=== PATIENT | male | born 1955 | race Caucasian/White ===

== ENCOUNTER 2020-12-09 08:48 | Outpatient (CLI) | payer BC ==
[2020-12-09] MEDS ORDERED: Magnevist 469MG/ML 20 ML VIAL ONE (09:49)
== END 2020-12-09 08:49 | disposition home or self-care (01) ==
LOC: TBSIIMAG 08:48
PROVIDERS: ATTEND Radiology Radiation Oncology
DX: C61 Malignant neoplasm of prostate (principal); Z98.890 Other specified postprocedural states
CPT/HCPCS: 72197; 82565

== ENCOUNTER 2020-12-24 10:34 | Outpatient (CLI) | payer BC | END 2020-12-24 10:35 | disposition home or self-care (01) | LOC: NM 10:34 | PROVIDERS: ATTEND Radiology Radiation Oncology | DX: C61 Malignant neoplasm of prostate (principal); R97.21 Rising PSA following treatment for malignant neoplasm of prostate; M15.9 Polyosteoarthritis, unspecified | CPT/HCPCS: 78306; 78803; A9503 ==

== ENCOUNTER 2021-10-26 11:43 | Outpatient (CLI) | payer MEDICARE | END 2021-10-26 11:44 | disposition home or self-care (01) | LOC: BICMRI 11:43 | PROVIDERS: ATTEND Surgery | DX: M50.20 Other cervical disc displacement, unspecified cervical region (principal); M48.02 Spinal stenosis, cervical region | CPT/HCPCS: 72125; 72141 ==

== ENCOUNTER 2022-01-14 08:03 | Outpatient (CLI) | payer MEDICARE | END 2022-01-14 08:04 | disposition home or self-care (01) | LOC: LABBT 08:03 | PROVIDERS: ATTEND Surgery | DX: Z01.818 Encounter for other preprocedural examination (principal); Z20.822 Contact with and (suspected) exposure to COVID-19 | CPT/HCPCS: 80048; 85027; 85610; 85730; 86850; 86900; 86901; 87811; 93005; 93010 ==

== ENCOUNTER 2022-03-01 08:39 | Outpatient (CLI) | payer MEDICARE | END 2022-03-01 08:40 | disposition home or self-care (01) | LOC: BICRAD 08:39 | PROVIDERS: ATTEND Surgery | DX: M50.10 Cervical disc disorder with radiculopathy, unspecified cervical region (principal); Z98.1 Arthrodesis status; Z98.890 Other specified postprocedural states | CPT/HCPCS: 72040 ==

== ENCOUNTER 2022-06-11 12:22 | Outpatient (CLI) | payer MEDICARE | END 2022-06-11 12:23 | disposition home or self-care (01) | LOC: TBSIIMAG 12:22 | PROVIDERS: ATTEND Surgery | DX: M25.551 Pain in right hip (principal); M54.50 Low back pain, unspecified; M47.816 Spondylosis without myelopathy or radiculopathy, lumbar region; M47.817 Spondylosis without myelopathy or radiculopathy, lumbosacral region | CPT/HCPCS: 72110; 72148 ==

== ENCOUNTER 2023-07-01 10:46 | Outpatient (CLI) | payer MEDICARE | END 2023-07-01 10:47 | disposition home or self-care (01) | LOC: BICCT 10:46 | PROVIDERS: ATTEND Registered Nurse | DX: R91.8 Other nonspecific abnormal finding of lung field (principal) | CPT/HCPCS: 71271 ==

== ENCOUNTER 2025-01-21 11:56 | Outpatient (CLI) | payer MEDICARE ==
[2025-01-21 13:11] LABS: #Basophils Less than 0.03 10x3/uL (0.0-0.2); #Eosinophils 0.07 10x3/uL (0.0-0.7); #Monocytes 0.59 10x3/uL (0.11-0.59); #Neutrophils 3.42 10x3/uL (1.40-6.50); %Basophils 0.3 % (0.0-1.0); %Eosinophils 1.2 % (0.0-10.0); %Lymphocytes 28.5 % (21.0-51.0); %Monocytes 10.3 % (0.0-10.0); %Neutrophils 59.5 % (42.0-75.0); Hematocrit 44.4 % (42.0-52.0); Hemoglobin 14.2 g/dL (14.0-18.0); Mean Corpuscular Hemoglobin 31.6 pg (27.0-31.0); Mean Corpuscular Volume 98.7 fL (78.0-98.0); Platelet Count 298 10x3/uL (130-400); Red Blood Cell (RBC) Count 4.50 mill/uL (4.70-6.10); White Blood Cell (WBC) Count 5.75 10x3/uL (4.8-10.8)
[2025-01-21 13:30] LABS: Anion Gap 15 mmol/L (10-20); BUN (Urea Nitrogen) 29 mg/dL (8.4-25.7); Calc. Creatinine Clearance 0 mL/min (70-130); Calcium 9.3 mg/dL (7.8-10.44); Carbon Dioxide 25 mmol/L (23-31); Chloride 105 mmol/L (98-107); Glucose 161 mg/dL (80-115); INR-International Normal Ratio 1.0; PTT 30.1 sec (22.9-36.1); Potassium 4.7 mmol/L (3.5-5.1); Prothrombin Time 12.9 sec (12.0-14.7); Sodium 140 mmol/L (136-145)
== END 2025-01-21 11:57 | disposition home or self-care (01) ==
LOC: LABBT 11:56
PROVIDERS: ATTEND Urology
DX: Z01.818 Encounter for other preprocedural examination (principal); N43.2 Other hydrocele
CPT/HCPCS: 80048; 85025; 85610; 85730; 93005; 93010

== ENCOUNTER 2025-01-28 05:55 | Day surgery (SDC) | payer MEDICARE ==
[2025-01-21 12:19] VITALS: BMI 33.0
[2025-01-28] MEDS ORDERED: Bupivacaine 0.25% HCL 30 ML VIAL ONE (06:48)
[2025-01-28] MEDS ORDERED: PROPOFOL 20 ML ONE (06:57)
[2025-01-28] MEDS ORDERED: fentaNYL PF 100 MCG/2 ML SYRINGE ONE (06:57)
[2025-01-28] MEDS ORDERED: LevoFLOXacin D5W 500 mg (100 mL) BAG ONE (07:22)
[2025-01-28] MEDS ORDERED: Ondansetron PF 4 MG/2 ML Vial ONE (07:48)
== END 2025-01-28 10:31 | disposition home or self-care (01) ==
LOC: SDC 05:55
PROVIDERS: ATTEND Urology
PROC: 0VBF0ZZ Excision of Right Spermatic Cord, Open Approach (ICD-10-PCS; principal; 2025-01-28)
DX: N43.3 Hydrocele, unspecified (principal); I10 Essential (primary) hypertension; E11.9 Type 2 diabetes mellitus without complications; E78.5 Hyperlipidemia, unspecified; K21.9 Gastro-esophageal reflux disease without esophagitis; Z96.651 Presence of right artificial knee joint; Z88.0 Allergy status to penicillin
CPT/HCPCS: 55040; 82962; J0665; J1100; J1956; J2405; J2704; J3490; 36416; 88302